=== PATIENT | female | born 1975 ===

== ENCOUNTER 2020-12-05 12:10 | Inpatient (IN) | payer SELFPAY ==
[2020-12-05 12:27] VITALS: BP 107/71; PULSE 87; RESP 18; TEMP 35.9; O2SAT 95
[2020-12-05 14:00] VITALS: BP 107/71; PULSE 87; RESP 18; TEMP 35.9; O2SAT 95
[2020-12-05 22:00] VITALS: BP 108/71; PULSE 90; RESP 17; TEMP 38.4; O2SAT 91
[2020-12-05] MEDS: trazodone 50 mg Tablet PO (22:08)
[2020-12-05] MEDS: hyDROXYzine 25 mg Capsule 50 MG PO (22:08)
--- NOTE | 2020-12-05 22:09 | PC.NURSE ---
PATIENT REQUESTED MEDS FOR SLEEP AND ANXIETY; TRAZODONE 50MG PO GIVEN; 50MG VISTERIL GIVEN.
[2020-12-06 06:00] VITALS: BP 109/55; PULSE 97; RESP 16; TEMP 37.8; O2SAT 94
[2020-12-06] MEDS: acetaminophen 325 mg Tablet 650 MG PO (06:54)
--- NOTE | 2020-12-06 10:06 | P.HP_ITS ---
Providers/Chief Complaint Admitting Physician: Noe Mason MD [facility] NPU History of Present Illness Kiana Rosa is a 45 year old female who presented to the outside hospital endorsing depression, anxiety and suicidal thinking with an intentional overdose. She was transferred to [facility] and ultimately admitted to the neuropsychiatric unit for definitive treatment of those issues. She presents today reporting that this is her first inpatient psychiatric hospitalization. She was started on Prozac by her PCP somewhere around 1995 and . She reports that she was on it for 5 years but never noticed any difference. She denies any other treatment for mental health services. Mood she endorses that she had suicide attempts prior to coming in here describing a situation where her and her were having an argument because he has a new woman and reports that he does not want to be together anymore so she grabbed a handful of her Cymbalta and took them. She denies ever doing this before or having any other suicide attempts. She endorses 1 pack of cigarettes a day, reports not drinking alcohol smoking marijuana or using any other illicit drugs except for methamphetamine every now and then. We have received calls from her mother who reports that her reports of her drug addiction are greatly underrepresented. She denies ever being in a rehab or having a DUI. She reports that she been 3 years and that he is also struggling with addiction and that this change in their relationship dynamic is totally out of the blue. She reports that she had been feeling some depression and anxiety. Not feeling overwhelmed with depression much like she was some years ago. We discussed the risks, benefits and alternatives of starting Lexapro 10 mg p.o. every morning and she understood and agreed to proceed as documented in this note. Psychiatric history: As above. Substance abuse history: As above. Family history: Patient denies mental health or addiction issues on either side of the family an d denies suicide attempts or completions in the family. Developmental history: There were no problems with the , or delivery, learned to walk and talk and met developmental milestones on time, and denies need for speech therapy, learning support, emotional support or special education classes. Psychosocial history: She reports that her parents were together when she was born and that she has 2 younger brothers that are a product of that same union. Neither parent had children with any other partners. She reports her childhood was normal and she denied any emotional, physical or sexual abuse. 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 She endorses being a heterosexual and her longest relationship was 6 years. She reports that she has been 5 times and 4 times, she has 2 daughters 25 and 20 years of age, she never been to the and endorses being a Anglican. 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 She currently lives in a house with her and his parents. Legal history: She denies halfway 1 time for few days. Medical history: She denies any significant medical issues. Meds NPU Home Medications Medication Instructions Recorded Confirmed Last Taken Type No Known Home Medications 12/06/20 12/06/20 Unknown History Allergies Allergy/AdvReac Type Severity Reaction Status Date / Time No Known Allergies Allergy Verified 12/05/20 22:05 Mental Status Exam MSE Comments: This is a slender white female with significant morgan on her face likely secondary to picking in hospital scrubs with limited grooming and eye contact. No abnormal movements except for psychomotor retardation. Cooperative with exam in mild distress. Speech was decreased rate and volume. Mood described as depressed, affect congruent and tearful. Thought process organized. Thought content: Patient denied suicidal or homicidal ideation, there were no delusions reported or noted, she denied any auditory visual hallucinations. Attention and concentration were intact and memory appeared reliable but none were formally tested. She is alert and oriented x3. Insight and judgment are impaired, impulse control is limited. Vitals/I&O/Wt Last Vital Signs Temp 100.0 F H 12/06/20 06:00 Pulse 97 12/06/20 06:00 Resp 16 12/06/20 06:00 BP 109/55 12/06/20 06:00 Pulse Ox 94 12/06/20 06:00 Weight last 48 hrs Weight 68.039 kg A&P Assessment and plan (1) Suicide attempt: Status: Acute (2) Depression: Status: Acute (3) Methamphetamine use: Status: Acute (4) Marital/partner relational problem: Status: Acute Additional A&P Information This is a 45-year-old white female with a long history of mental health and addiction issues who presents with marital discord, suicide attempt and active addiction. 1. Continue current medication. Start Lexapro 10 mg p.o. every morning 2. Continue every 15 minute checks for safety. 3. Encourage individual, group and milieu therapies. 4. Encourage sober living treatment after discharge at the highest level of care to which he is willing to commit. Involuntary Hold Information 96 Hour Hold: 96 Hour Involuntary Admission: Yes 96 Hour Hold Ending Date: 12/11/20 96 Hour Hold Ending Time: 12:01 Attestations NPU Medical Necessity Statement*: Inpatient hospitalization is medically necessary and the clinically appropriate intervention at this time. We will monitor medications and make changes as indicated. Patient will be in the hospital for over two midnights. Likely length of stay 3 to 5 days. 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
[2020-12-06 13:54] VITALS: BP 111/69; PULSE 96; RESP 18; TEMP 37.2
[2020-12-06 20:46] VITALS: BP 99/67; PULSE 97; RESP 16; TEMP 36.8; O2SAT 95
[2020-12-07 06:00] VITALS: BP 92/59; PULSE 82; RESP 17; TEMP 36.7; O2SAT 96
[2020-12-07] MEDS: escitalopram 10 mg Tablet PO (08:22)
[2020-12-07 14:00] VITALS: BP 95/64; PULSE 71; RESP 16; TEMP 36.8; O2SAT 95
--- NOTE | 2020-12-07 16:31 | PM.NPN ---
Subjective NPU Subjective: Interval history: Kiana presents today reporting that she is tolerating the Lexapro well. She endorses that she has been tired little bit and recovering and resting up to deal with things again. She reports that the plan is to leave and go to her mother's spend some time with her. She reports that she is excepting of the reality of her relationship. She endorses a plan to address her addiction from a perspective of abstinence. Mental Status Exam MSE Comments: This is a slender white female with significant morgan on her face likely secondary to picking in hospital scrubs with adequate grooming and eye contact. No abnormal movements except for mild psychomotor retardation. Cooperative with exam in no acute distress. Speech was more normal rate and volume. Mood described as tired but better, affect congruent. Thought process organized. Thought content: Patient denied suicidal or homicidal ideation, there were no delusions reported or noted, she denied any auditory or visual hallucinations. Attention and concentration were intact and memory appeared reliable but none were formally tested. She is alert and oriented x3. Insight and judgment are improving, impulse control is limited, but improving. Vitals/I&O/Wt Last Vital Signs Temp 97.7 F 12/07/20 22:00 Pulse 76 12/07/20 22:00 Resp 16 12/07/20 22:00 BP 106/69 12/07/20 22:00 Pulse Ox 97 12/07/20 22:00 Weight last 48 hrs Weight 68.039 kg A&P Additional A&P Information (1) Suicide attempt: (2) Depression: (3) Methamphetamine use: (4) Marital/partner relational problem: Additional A&P Information This is a 45-year-old white female with a long history of mental health and addiction issues who presents with marital discord, suicide attempt and active addiction. 1. Continue current medication. 2. Continue every 15 minute checks for safety. 3. Encourage individual, group and milieu therapies. 4. Encourage sober living treatment after discharge at the highest level of care to which he is willing to commit. Involuntary Hold Information 96 Hour Hold: 96 Hour Involuntary Admission: Yes 96 Hour Hold Ending Date: 12/11/20 96 Hour Hold Ending Time: 12:01 Attestations NPU Medical Necessity Statement*: Inpatient hospitalization is medically necessary and the clinically appropriate intervention at this time. We will monitor medications and make changes as indicated. Likely discharge tomorrow. 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
[2020-12-07 22:00] VITALS: BP 106/69; PULSE 76; RESP 16; TEMP 36.5; O2SAT 97
[2020-12-08 06:39] VITALS: BP 99/69; PULSE 75; RESP 18; TEMP 36.6; O2SAT 96
[2020-12-08] MEDS: escitalopram 10 mg Tablet PO (08:31)
--- NOTE | 2020-12-08 10:17 | P.DS_ITS ---
Diagnoses at Discharge Discharge Diagnosis (1) Suicide attempt: Status: Acute (2) Depression: Status: Acute (3) Methamphetamine use: Status: Acute (4) Marital/partner relational problem: Status: Acute Reason for Visit Reason for Visit: Brief History: History of Present Illness Kiana Rosa is a 45 year old female who presented to the outside hospital endorsing depression, anxiety and suicidal thinking with an intentional overdose. She was transferred to [facility] and ultimately admitted to the neuropsychiatric unit for definitive treatment of those issues. She presents today reporting that this is her first inpatient psychiatric hospitalization. She was started on Prozac by her PCP somewhere around 1995 and . She reports that she was on it for 5 years but never noticed any difference. She denies any other treatment for mental health services. Mood she endorses that she had suicide attempts prior to coming in here describing a situation where her and her were having an argument because he has a new woman and reports that he does not want to be together anymore so she grabbed a handful of her Cymbalta and took them. She denies ever doing this before or having any other suicide attempts. She endorses 1 pack of cigarettes a day, reports not drinking alcohol smoking marijuana or using any other illicit drugs except for methamphetamine every now and then. We have received calls from her mother who reports that her reports of her drug addiction are greatly underrepresented. She denies ever being in a rehab or having a DUI. She reports that she been 3 years and that he is also struggling with addiction and that this change in their relationship dynamic is totally out of the blue. She reports that she had been feeling some depression and anxiety. Not feeling overwhelmed with depression much like she was some years ago. We discussed the risks, benefits and alternatives of starting Lexapro 10 mg p.o. every morning and she understood and agreed to proceed as documented in this note. Psychiatric history: As above. Substance abuse history: As above. Family history: Patient denies mental health or addiction issues on either side of the family and denies suicide attempts or completions in the family. Developmental history: There were no problems with the , or delivery, learned to walk and talk and met developmental milestones on time, and denies need for speech therapy, learning support, emotional support or special education classes. Psychosocial history: She reports that her parents were together when she was born and that she has 2 younger brothers that are a product of that same union. Neither parent had children with any other partners. She reports her childhood was normal and she denied any emotional, physical or sexual abuse. 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 She endorses being a heterosexual and her longest relationship was 6 years. She reports that she has been 5 times and 4 times, she has 2 daughters 25 and 20 years of age, she never been to the and endorses being a Orthodox. 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 She currently lives in a house with her and his parents. Legal history: She denies halfway 1 time for few days. Medical history: She denies any significant medical issues. Hospital Course Hospital Course Kiana presented to the emergency department after an intentional overdose with depression and inability to contract for safety. She was admitted to the neuropsychiatric unit for definitive treatment of those issues. On slowly acclimated to the individual, milieu therapies provided. She is able to identify the circumstances that led to the overdose and was able to work with the social workers to come to some level of peace about her relationship with her . He started Lexapro 10 g p.o. every morning and she had a modest improvement and was able to contract for safety outside the hospital prior to discharge. During the hospitalization, patient had routine laboratory studies which were within normal limits except for few outliers. Additionally there was a general medical evaluation which was also within normal limits and revealed no new acute processes. Discharge Summary: At the time of discharge, lethality was denied and psychosis was resolving. Mood and anxiety were well managed. Patient endorsed a plan to avoid all drugs of abuse and follow-up with the aftercare recommendations of the treatment team. Patient was evaluated and deemed to be absent credible lethality, and had achieved the maximum benefit from an inpatient hospitalization, so was discharged. Involuntary Hold Information 96 Hour Hold: 96 Hour Involuntary Admission: Yes 96 Hour Hold Ending Date: 12/11/20 96 Hour Hold Ending Time: 12:01 Mental Status Exam MSE Comments: This is a slender white female with significant morgan on her face likely secondary to picking, in hospital scrubs with adequate grooming and eye contact. No abnormal movements except for resolving mild psychomotor retardation. Cooperative with exam in no acute distress. Speech was more normal rate and volume. Mood described as better, affect congruent. Thought process organized. Thought content: Patient denied suicidal or homicidal ideation, there were no delusions reported or noted, she denied any auditory or visual hallucinations. Attention and concentration were intact and memory shahla eared reliable but none were formally tested. She is alert and oriented x3. Insight and judgment are improving, impulse control is limited, but improving. Discharge Data Vitals: Last Vital Signs Temp 97.8 F 12/08/20 06:39 Pulse 75 12/08/20 06:39 Resp 18 12/08/20 06:39 BP 99/69 12/08/20 06:39 Pulse Ox 96 12/08/20 06:39 Discharge Plan Discharge Patient Disposition: Home Condition: Stable Prescriptions: New escitalopram oxalate 10 mg Tablet 10 mg PO DAILY 30 Days Qty: 30 RF: 1 Discharge Orders: Discharge Order (Routine); Ordered 12/08/20 Ordered By: Noe Mason Referrals: [facility] [Other] (*resource for both outpatient mental health treatment and substance abuse treatment Call for intake assessment) Discharge Diet: Regular Discharge Activity: Resume usual activity Patient Instructions: Escitalopram (By mouth) Discharge Attestations NPU Time Spent in Discharge Care*: less than 30 min Specific Discharge Activities: Specific discharge activities: educating patient, discussing with rehabilitation caseworker/social workers/dc planners, documenting/o ther paperwork and evaluating patient/reviewing data Coding Level of Care Code Acute 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
[2020-12-08 10:29] VITALS: BP 99/69; PULSE 75; RESP 18; TEMP 36.6; O2SAT 96
== END 2020-12-08 11:14 | disposition home or self-care (01) | DRG 918 ==
PROVIDERS: Admitting Provider Psychiatry & Neurology Psychiatry; Visit Provider Psychiatry & Neurology Psychiatry
DX: T43.212A Poisoning by selective serotonin and norepinephrine reuptake inhibitors, intentional self-harm, initial encounter (principal); F32.9 Major depressive disorder, single episode, unspecified; F41.9 Anxiety disorder, unspecified; F17.210 Nicotine dependence, cigarettes, uncomplicated; F15.90 Other stimulant use, unspecified, uncomplicated; Z63.0 Problems in relationship with spouse or partner